=== PATIENT | male | born 1940 | race Hispanic/Latino ===

== ENCOUNTER 2017-09-17 12:28 | Emergency (ER) | payer OTHER ==
[~2017-09-17 12:28] MED LIST: ATOR40TA69 PO; BENZ-39 PO; CIPR-278 PO; CITA10TA13 PO; FAMO20TA8 PO; FENO54TA6 PO; FLUO40CA49 PO; GABA-531 PO; HYDR-4060 PO; HYDR-4153 PO; LISI40TA4 PO; METO25TA6 PO; ONDA8TAB5 PO; TAMS0.4C32 PO; TRAZ-185 PO; TROL85CR8 TP
[2017-09-17 12:57] LABS: BASOPHILS % (AUTO) 0.6 % (0.0-5.0); EOSINOPHILS % (AUTO) 0.6 % (0.0-8.0); HEMATOCRIT 46.1 % (42-54); LYMPHOCYTES % (AUTO) 15.6 % (21.0-51.0); MEAN CORPUSCULAR HEMOGLOBIN 31.8 pg (27.0-33.0); MEAN CORPUSCULAR HGB CONC 35.3 g/dL (32.0-36.0); MONOCYTES % (AUTO) 5.7 % (3.0-13.0); NEUTROPHILS % (AUTO) 77.5 % (40.0-77.0); PLATELET COUNT (AUTO) 214 K/uL (130-400); RED BLOOD CELL COUNT(AUTO) 5.13 MIL/uL (4.50-6.20); RED CELL DISTRIBUTION WIDTH 14.3 % (11.0-15.5); WHITE BLOOD COUNT (AUTO) 9.5 K/uL (4.8-10.8)
[2017-09-17 13:03] LABS: CREATININE 0.9 mg/dL (0.5-1.5); POTASSIUM 3.5 mmol/L (3.5-5.1)
[2017-09-17 13:10] LABS: ALBUMIN 4.1 g/dL (3.5-5.0); BILIRUBIN,DIRECT 0.2 mg/dL (0.0-0.3); BILIRUBIN,TOTAL 0.9 mg/dL (0.2-1.0); TOTAL PROTEIN, SERUM 6.8 g/dL (6.0-8.3)
[2017-09-17] MEDS ORDERED: MECLIZINE HCL 25 MG TABLET ONE (13:31)
[2017-09-17] MEDS ORDERED: ONDANSETRON HCL 4 MG/2 ML VIAL ONE (13:31)
[2017-09-17 13:35] LABS: B-TYPE NATRIURETIC PEPTIDE 23 pg/mL (0-100)
== END 2017-09-17 15:06 | disposition home or self-care (01) ==
LOC: EDH 12:28
DX: H81.399 Other peripheral vertigo, unspecified ear (principal); I10 Essential (primary) hypertension; E78.5 Hyperlipidemia, unspecified; Z98.890 Other specified postprocedural states; Z87.891 Personal history of nicotine dependence; Z88.8 Allergy status to other drugs, medicaments and biological substances
CPT/HCPCS: 36415; 70450; 80048; 80076; 83880; 84484; 85025; 93005; 96374; 99285; J2405

== ENCOUNTER → 2017-12-03 | Outpatient (CLI) | payer OTHER | END | disposition home or self-care (01) | LOC: SHCH 12:30 | PROVIDERS: ATTEND Internal Medicine Cardiovascular Disease | DX: I35.1 Nonrheumatic aortic (valve) insufficiency (principal); I48.0 Paroxysmal atrial fibrillation; I10 Essential (primary) hypertension; E78.5 Hyperlipidemia, unspecified; M19.90 Unspecified osteoarthritis, unspecified site | CPT/HCPCS: 93306 ==

== ENCOUNTER → 2020-01-01 | Outpatient (CLI) | payer OTHER ==
[~2020-01-01] VITALS: Ht 160 cm; Wt 79.5 kg
[~2020-01-01] MED LIST changes: +CEFTRIAXONE SODIUM 1 GM IVP SCH; +GENTAMICIN 120 MG IN 100ML NS 100 ML IV SCH
[2020-01-01 13:41] LABS: BASOPHILS % (AUTO) 0.4 % (0.0-5.0); EOSINOPHILS % (AUTO) 3.8 % (0.0-8.0); HEMATOCRIT 47.4 % (42-54); LYMPHOCYTES % (AUTO) 16.5 % (21.0-51.0); MEAN CORPUSCULAR HEMOGLOBIN 30.9 pg (27.0-33.0); MEAN CORPUSCULAR HGB CONC 32.5 g/dL (32.0-36.0); MONOCYTES % (AUTO) 4.9 % (3.0-13.0); PLATELET COUNT (AUTO) 223 K/uL (130-400); RED BLOOD CELL COUNT(AUTO) 4.99 MIL/uL (4.50-6.20); RED CELL DISTRIBUTION WIDTH 13.1 % (11.0-15.5); WHITE BLOOD COUNT (AUTO) 9.6 K/uL (4.8-10.8)
[2020-01-01 13:46] LABS: POTASSIUM 4.2 mmol/L (3.5-5.1)
[2020-01-01 13:51] LABS: INR 1.04 (0.85-1.15); PARTIAL THROMBOPLASTIN TIME 32.3 SEC (26.3-35.5); PROTHROMBIN TIME 11.2 SEC (9.6-11.6)
[2020-01-01 14:25] LABS: APPEARANCE,URINE CLOUDY (CLEAR); BILIRUBIN,URINE MODERATE (NEGATIVE); COLOR,URINE BROWN (YELLOW); GLUCOSE, URINE (UA) NEGATIVE (NEGATIVE); KETONES,URINE 5 mg/dL (NEGATIVE); LEUKOCYTE ESTERASE ,URINE MODERATE (NEGATIVE); NITRATE,URINE POSITIVE (NEGATIVE); OCCULT BLOOD,URINE LARGE (NEGATIVE); PH,URINE 6.5 (5.0-8.0); PROTEIN,URINE >=300 mg/dL (NEGATIVE)
[2020-01-01 14:52] LABS: RBC,URINE TNTC /HPF (0-1)
[2020-01-01 14:54] LABS: BACTERIA,URINE Few /HPF (None Seen); WBC,URINE 26-50 /HPF (0-1)
[2020-01-01 14:56] LABS: SQUAMOUS EPITHELIAL CELL,UR None Seen /HPF (0-2)
[2020-01-06 15:16] VITALS: BP 208/82
--- NOTE | 2020-01-06 15:52 | NUR ---
LABS ABNORMAL LABS INCLUDING URINALYSIS AND URINE CULTURE FAXED TO DR. GRAMAJO FOR REVIEW.
--- NOTE | 2020-01-06 15:53 | NUR ---
ABNORMAL EKG DR. MORALES MADE AWARE OF ABNORMAL EKG. NO FURTHER TELEPHONE ORDERS RECEIVED.
== END | disposition home or self-care (01) ==
LOC: DAH 10:10 → EDSTATUS 01-07 10:00
PROVIDERS: ATTEND Urology
DX: N40.1 Benign prostatic hyperplasia with lower urinary tract symptoms (principal); Z20.828 Contact with and (suspected) exposure to other viral communicable diseases; R33.8 Other retention of urine; M19.90 Unspecified osteoarthritis, unspecified site; I10 Essential (primary) hypertension; Z88.8 Allergy status to other drugs, medicaments and biological substances; Z53.8 Procedure and treatment not carried out for other reasons; Z79.01 Long term (current) use of anticoagulants
CPT/HCPCS: 36415; 71045; 80048; 81001; 85025; 85610; 85730; 87077; 87088; 87186; 93005; A6260; C9803; U0003